=== PATIENT | female | born 1990 | race Caucasian/White ===

== ENCOUNTER 2017-06-01 12:09 | Emergency (ER) | payer OTHER ==
[2017-06-01 13:37] VITALS: BP 132/78
--- NOTE | 2017-06-01 13:49 | UC ---
Ear Complaint HPI - HPI Summary HPI Summary: She had an ear infection that was treated with antibiotics. The pain has improved. She finished the antibiotics. She now has muffled right hearing. No pain whatsoever and no fever. - History of Current Complaint Chief Complaint: UCEar Stated Complaint: RIGHT EAR COMPLAINT Time Seen by Provider: 06/01/17 13:36 Hx Obtained From: Patient Hx Last Menstrual Period: 2.5 months Onset/Duration: Gradual Onset, Lasting Days Severity Initially: Moderate Severity Currently: Moderate Pain Intensity: 0 Aggravating Factors: Nothing Alleviating Factors: Nothing Associated Signs/Symptoms: Positive: Hearing Loss - Allergies/Home Medications Allergies/Adverse Reactions: Allergies Allergy/AdvReac Type Severity Reaction Status Date / Time No Known Allergies Allergy Verified 03/13/17 19:48 Home Medications: Home Medications Hormone Iud 1 unit IU DAILY 06/01/17 [History] PMH/Surg Hx/FS Hx/Imm Hx Previously Healthy: No - OM. - Surgical History Surgical History: Yes Surgery Procedure, Year, and Place: C-SECT - Family History Known Family History: Positive: Hypertension Negative: Cardiac Disease, Diabetes - Social History Alcohol Use: Occasionally Substance Use Type: None Smoking Status (MU): Light Every Day Tobacco Smoker Type: Cigarettes Amount Used/How Often: 5 CIGS PER DAY Length of Time of Smoking/Using Tobacco: 11 YRS Review of Systems All Other Systems Reviewed And Are Negative: Yes Physical Exam Triage Information Reviewed: Yes Appearance: Well-Appearing, Obese Vital Signs: Initial Vital Signs Temp 97.4 F 06/01/17 13:33 Pulse 83 06/01/17 13:33 Resp 18 06/01/17 13:33 BP 132/78 06/01/17 13:33 Pulse Ox 97 06/01/17 13:33 Vital Signs Reviewed: Yes Eyes: Positive: Conjunctiva Clear ENT: Positive: Hearing grossly normal, Nasal congestion, TM bulging - Right ear bulging but clear effusion.. Negative: Tonsillar swelling, Tonsillar exudate, Trismus, Sinus tenderness, Uvula midline Neck: Positive: Supple, Nontender, No Lymphadenopathy Respiratory: Positive: Lungs clear, Normal breath sounds, No respiratory distress. Negative: No accessory muscle use, Respiratory distress, Decreased breath sounds, Accessory muscle use, Crackles, Rhonchi, Stridor, Wheezing Cardiovascular: Positive: RRR, No Murmur, Pulses Normal Abdomen Description: Positive: Nontender, No Organomegaly, Soft. Negative: Distended Bowel Sounds: Negative: Present Musculoskeletal: Positive: ROM Intact, No Edema Neurological: Positive: Alert, Muscle Tone Normal. Negative: Fatigued Psychological: Positive: Age Appropriate Behavior Skin: Negative: rashes Ear Complaint Course/Dx - Course Course Of Treatment: f/u with Dr. Reilly whom she requested if this does not improved. Tommie took care of her son. - Differential Dx/Diagnosis Provider Diagnoses: right ear effusion. serous otitis. Discharge - Discharge Plan Condition: Good Disposition: HOME Prescriptions: Fluticasone NASAL * [Flonase *] 2 spray BOTH NARES DAILY #1 spray Pseudoephedrine-Guaifenesin [Mucinex D 60-600 mg] 1 tab PO BID #30 tab Patient Education Materials: Serous Otitis Media (ED) Referrals: Jb Reilly MD [Medical Doctor] - No Primary Care Phys,NOPCP [Primary Care Provider] - Additional Instructions: Decongestants and nasal steroid and f/u with Dr. Reilly if not improved in a few weeks.
== END 2017-06-01 13:50 | disposition home or self-care (01) ==
LOC: UCCORT 12:09
DX: H65.91 Unspecified nonsuppurative otitis media, right ear (principal); E66.9 Obesity, unspecified; Z97.5 Presence of (intrauterine) contraceptive device; F17.210 Nicotine dependence, cigarettes, uncomplicated
CPT/HCPCS: 99212; G0463